=== PATIENT | female | born 2000 | race Asian ===

== ENCOUNTER → 2023-07-01 11:14 | Outpatient (REF) | payer BC, SELFPAY ==
[2023-07-01 12:41] LABS: Blood Urea Nitrogen 9 mg/dl (7-17); Calcium 9.1 mg/dl (8.4-10.2); Carbon Dioxide 23 mmol/L (22-30); Chloride 107 mmol/L (98-107); Glucose 120 mg/dl (70-99); Potassium 4.3 mmol/L (3.5-5.1); Sodium 137 mmol/L (135-145); eGFR > 60.00
[2023-07-01 13:11] LABS: Cortisol, Random 7.5 ug/dl; TSH 2.45 uIU/ml (0.47-4.68)
[2023-07-02 10:38] LABS: Glycohemoglobin (HgbA1c) 5.2 % (4.0-5.6)
== END ==
LOC: REG 11:14
PROVIDERS: ATTENDING PHYSICIAN Student in an Organized Health Care Education/Training Program
DX: R63.5 Abnormal weight gain (principal)
CPT/HCPCS: 36415; 80048; 82533; 83036; 84443

== ENCOUNTER → 2023-07-21 13:33 | Outpatient (REF) | payer BC, SELFPAY | LOC: MRI 3T 13:33 | PROVIDERS: ATTENDING PHYSICIAN Orthopaedic Surgery Hand Surgery; FAMILY PHYSICIAN Family Medicine | DX: M25.531 Pain in right wrist (principal) | CPT/HCPCS: 25246; 73115; 73222 ==

== ENCOUNTER 2023-09-13 06:22 | Day surgery (SDC) | payer BC, SELFPAY ==
[2023-09-13] VITALS (14 sets, daily range): BP systolic 94–116; BP diastolic 46–76; BMI 27.6
[2023-09-13] MEDS: TYLENOL 1000 MG PO (11:22)
[2023-09-13] MEDS: CELEBREX 200 MG PO (11:22)
[2023-09-13] MEDS: NORMOSOL-R 1000 IV (11:23)
[2023-09-13] MEDS: DILAUDID 0.25 MG IV ×5 (15:06→15:59)
--- NOTE | 2023-09-13 16:12 | SUR.PHASEI ---
High pain levels in PACU, Dr Sheikh informed of same. rt arm CSM wnl, elevation and ice, repositioning. Ayse Varma RN BSN.
[2023-09-13] MEDS: TORADOL 30 MG IV (16:20)
--- NOTE | 2023-09-13 16:24 | SUR.PHASEI ---
Patient seen by Dr Sheikh, Toradol ordered for pain. Ayse Varma RN BSN.
[2023-09-13] MEDS: DILAUDID 0.5 MG IV (16:37)
[2023-09-13] MEDS: ROXICODONE 5 MG PO (17:44)
== END 2023-09-13 17:55 | disposition home or self-care (01) ==
LOC: SDS 06:22
PROVIDERS: ATTENDING PHYSICIAN Orthopaedic Surgery Hand Surgery
DX: S63.599A Other specified sprain of unspecified wrist, initial encounter (principal); X58.XXXA Exposure to other specified factors, initial encounter
CPT/HCPCS: 25107; 29846

== ENCOUNTER → 2023-10-31 12:23 | Outpatient (REF) | payer BC, SELFPAY | LOC: EMG 12:23 | PROVIDERS: ATTENDING PHYSICIAN Orthopaedic Surgery Hand Surgery; FAMILY PHYSICIAN Student in an Organized Health Care Education/Training Program | DX: Z47.89 Encounter for other orthopedic aftercare (principal); M25.531 Pain in right wrist | CPT/HCPCS: 95886; 95910 ==

== ENCOUNTER 2023-11-27 06:55 | Outpatient (RCR) | payer BC, SELFPAY | END 2023-11-27 23:59 | disposition home or self-care (01) | LOC: ROT 06:55 | PROVIDERS: ATTENDING PHYSICIAN Orthopaedic Surgery Hand Surgery; FAMILY PHYSICIAN Student in an Organized Health Care Education/Training Program | DX: S63.501D Unspecified sprain of right wrist, subsequent encounter (principal); Z73.6 Limitation of activities due to disability; Z98.890 Other specified postprocedural states | CPT/HCPCS: 97018; 97166; 97535 ==

== ENCOUNTER 2024-01-11 16:05 | Outpatient (RCR) | payer BC, SELFPAY | END 2024-01-11 23:59 | disposition home or self-care (01) | LOC: ROT 16:05 | PROVIDERS: ATTENDING PHYSICIAN Orthopaedic Surgery Hand Surgery; FAMILY PHYSICIAN Student in an Organized Health Care Education/Training Program | DX: Z47.89 Encounter for other orthopedic aftercare (principal); S63.501D Unspecified sprain of right wrist, subsequent encounter; Z73.6 Limitation of activities due to disability; M62.81 Muscle weakness (generalized) | CPT/HCPCS: 97018; 97110 ==

== ENCOUNTER → 2024-08-14 16:13 | Outpatient (REF) | payer BC, SELFPAY ==
[2024-08-14 16:50] LABS: % Basophils 0.5 % (0-2); % Immature Granulocytes 0.2 % (0-0.5); % Lymphocytes 35.6 % (20.5-51.1); % Monocytes 6.1 % (1.7-9.3); % Neutrophils 54.6 % (42.2-75.2); Absolute Eosinophils 0.2 10^3/uL (0-0.7); Absolute Lymphocytes 2.2 10^3/uL (1.2-3.4); Absolute Monocytes 0.4 10^3/uL (0.1-0.6); Absolute Neutrophils 3.4 10^3/uL (1.4-6.5); Hematocrit 36.4 % (37.0-47.0); Hemoglobin 12.4 g/dL (12.0-16.0); Mean Corp Hgb Conc. 34.1 g/dL (33.0-37.0); Mean Platelet Volume 9.4 fL (7.4-10.4); Nucleated Red Blood Cells % 0 %; Platelet Count 294 10^3/uL (130-400); Red Cell Dist. Width 11.8 % (11.5-14.5); White Blood Cell Count 6.3 10^3/uL (4.8-10.8)
[2024-08-14 17:10] LABS: ALT (SGPT) < 10 U/L (0-35); AST (SGOT) 18 U/L (14-36); Albumin 4.9 g/dl (3.5-5.0); Alkaline Phosphatase 45 U/L (38-126); Blood Urea Nitrogen 11 mg/dl (7-17); Calcium 9.5 mg/dl (8.4-10.2); Carbon Dioxide 28 mmol/L (22-30); Chloride 103 mmol/L (98-107); Glucose 83 mg/dl (70-99); HDL Cholesterol 45 mg/dl; LDL Cholesterol, Calculated 103 mg/dl; Potassium 4.2 mmol/L (3.5-5.1); Sodium 140 mmol/L (135-145); Total Bilirubin 0.7 mg/dl (0.2-1.3); Total Cholesterol 163 mg/dl (50-199); Total Protein 7.6 g/dl (6.3-8.2); Triglyceride 76 mg/dl (10-149); Very Low Density Lipoprotein 15 mg/dl (0-30); eGFR > 60.00
[2024-08-14 17:42] LABS: TSH Reflex To Free T4 3.05 uIU/ml (0.47-4.68)
[2024-08-15 13:23] LABS: Mumps Virus IgG Equivocal; Rubeola (Measles) IgG Negative; Varicella Zoster IgG (VZV) Positive
[2024-08-15 19:48] LABS: Rubella Negative
[2024-08-15 20:30] LABS: Hepatitis B Surface Antibody Indeterminate
== END ==
LOC: REG 16:13
PROVIDERS: ATTENDING PHYSICIAN Physician Assistant Medical
DX: Z01.84 Encounter for antibody response examination (principal); Z00.00 Encounter for general adult medical examination without abnormal findings; F41.9 Anxiety disorder, unspecified; F32.9 Major depressive disorder, single episode, unspecified; Z11.1 Encounter for screening for respiratory tuberculosis; Z13.220 Encounter for screening for lipoid disorders
CPT/HCPCS: 36415; 80053; 80061; 84443; 85025; 86706; 86735; 86762; 86765; 86787

== ENCOUNTER → 2024-09-06 10:27 | Outpatient (REF) | payer BC, SELFPAY | LOC: RCS 10:27 | PROVIDERS: ATTENDING PHYSICIAN Physician Assistant Medical | DX: R42 Dizziness and giddiness (principal); R00.0 Tachycardia, unspecified | CPT/HCPCS: 93225; 93226 ==

== ENCOUNTER → 2024-12-13 11:35 | Outpatient (REF) | payer BC, SELFPAY | LOC: REG 11:35 | PROVIDERS: ATTENDING PHYSICIAN Physician Assistant Medical | DX: Z11.1 Encounter for screening for respiratory tuberculosis (principal); Z01.84 Encounter for antibody response examination | CPT/HCPCS: 36415; 86480; 86706; 86735; 86762; 86765 ==